=== PATIENT | male | born 1985 | race Caucasian/White ===

== ENCOUNTER 2016-12-17 15:33 | Emergency (ER) | payer OTHER ==
[2016-12-17 15:45] VITALS: BP 134/81; PULSE 87; TEMP 98.1; BMI 25.8
[2016-12-17] MEDS ORDERED: traMADol HCL 50 MG TABLET PO ONE (17:47)
[2016-12-17] MEDS ORDERED: traMADol HCL 50 MG TABLET ONE (17:53)
--- NOTE | 2016-12-17 17:57 | PDOC ---
History of Present Illness - General History Source: Patient - History of Present Illness Occurred: reports: other Upper Extremity Pain Location: right: forearm, arm <Harpreet Ronquillo - Last Filed: 12/17/16 17:48> <Cuong Flores - Last Filed: 12/17/16 20:29> - General Chief Complaint: Pain, Acute Stated Complaint: CHEST PAIN, RT ARM NUMBNESS Time Seen by Provider: 12/17/16 17:36 Past History - Past Medical History Anemia: No Asthma: No Cardiac Disorders: No CVA: No COPD: No Diabetes: No GI Disorders: No Disorders: No HTN: No Hypercholesterolemia: No Kidney Stones: No Suicide Attempt (Hx): No (DENIES) Seizures: No Thyroid Disease: No - Surgical History Abdominal Surgery: No Appendectomy: No Cardiac Surgery: No Cholecystectomy: No Lung Surgery: No Neurologic Surgery: No Orthopedic Surgery: No - Reproductive History Testicular Surgery: No - Psycho/Social/Smoking Cessation Hx Anxiety: No Suicidal Ideation: No Smoking History: Current every day smoker Have you smoked in the past 12 months: Yes Number of Cigarettes Smoked Daily: 20 Information on smoking cessation initiated: No 'Breaking Loose' booklet given: 07/09/16 Hx Alcohol Use: No (DENIES) Drug/Substance Use Hx: Yes (HEROIN/MARIJUANA) Substance Use Type: Heroin, Marijuana Hx Substance Use Treatment: Yes <Harpreet Ronquillo Last Filed: 12/17/16 17:48> <Cuong Flores - Last Filed: 12/17/16 20:29> - Past Medical History Allergies/Adverse Reactions: Allergies Allergy/AdvReac Type Severity Reaction Status Date / Time No Known Allergies Allergy Verified 12/17/16 15:42 Home Medications: Ambulatory Orders NK [No Known Home Medication] 07/09/16 Buprenorphine HCl/Naloxone HCl [Suboxone 8 mg-2 mg Sl Tablets] 1 each SL DAILY 12/17/16 Tramadol HCl 50 mg PO Q6H #5 tablet MDD 200 mg 12/17/16 Review of Systems - Review of Systems Constitutional: No: Chills, Fever Respiratory: No: Shortness of Breath Cardiac (ROS): No: Chest Pain Musculoskeletal: No: Neck Pain Neurological: No: Numbness, Tingling, Weakness <Harpreet Ronquillo Last Filed: 12/17/16 17:48> *Physical Exam - Vital Signs Last Vital Signs Temp Pulse Resp BP Pulse Ox 98.1 F 87 18 134/81 96 12/17/16 15:42 12/17/16 15:42 12/17/16 15:42 12/17/16 15:42 12/17/16 15:42 - Physical Exam General Appearance: Yes: Appropriately Dressed. No: Apparent Distress HEENT: positive: Normal Voice Neck: positive: Supple Respiratory/Chest: positive: Lungs Clear, Normal Breath Sounds. negative: Respiratory Distress Cardiovascular: positive: Regular Rate, S1, S2 Extremity: positive: Normal Capillary Refill, Normal Inspection, Normal Range of Motion. negative: Tender, Coldness, Cyanosis, Delayed Capillary Refill, Swelling, Erythema Integumentary: positive: Dry, Warm Neurologic: positive: Fully Oriented, Alert, Normal Mood/Affect. negative: Sensory Deficit <Harpreet Ronquillo - Last Filed: 12/17/16 17:48> - Vital Signs Last Vital Signs Temp Pulse Resp BP Pulse Ox 98.1 F 87 18 134/81 96 12/17/16 15:42 12/17/16 15:42 12/17/16 15:42 12/17/16 15:42 12/17/16 15:42 <Cuong Flores - Last Filed: 12/17/16 20:29> ED Treatment Course - Medications Given in the ED: ED Medications Discontinued Medications Generic Name Dose Route Start Last Admin Trade Name Freq PRN Reason Stop Dose Admin Tramadol HCl 50 mg 12/17/16 17:47 12/17/16 17:56 Ultram - PO 12/17/16 17:48 50 mg ONCE ONE Administration <Cuong Flores - Last Filed: 12/17/16 20:29> Medical Decision Making - Medical Decision Making 12/17/16 17:48 31 yo male, denies any past medical history, here with right upper extremity pain. Patient reports intermittent pain diffusely to right upper extremity 2 weeks that became constant yesterday and now complaining of numbness to right third and fourth digits. No neck pain or upper extremity weakness. No trauma or other inciting agents. No history of similar episode. States he has an upcoming appointment with neurology, but came to ED today because pain was unbearable. Has been taking motrin and tylenol w/ no relief. No chest pain as documented at triage. Patient well merry and in NAD w/ unremarkable exam. Dc w/ pain control and encourage neuro f/u 12/17/16 18:01 <Harpreet Ronquillo - Last Filed: 12/17/16 17:48> - Medical Decision Making 12/17/16 20:29 The patient was seen and evaluated in conjunction with DARRELL Ramon under my direct supervision, ancillary studies were reviewed. I agree with the plan as outlined by DARRELL Ronquillo . <Cuong Flores - Last Filed: 12/17/16 20:29> *DC/Admit/Observation/Transfer <Harpreet Ronquillo - Last Filed: 12/17/16 17:48> <Cuong Flores - Last Filed: 12/17/16 20:29> Diagnosis at time of Disposition: Arm pain Qualifiers: Laterality: right Qualified Code(s): M79.601 - Pain in right arm - Discharge Dispostion Disposition: HOME Condition at time of disposition: Good - Prescriptions Prescriptions: Tramadol HCl 50 mg PO Q6H #5 tablet MDD 200 mg - Referrals Referrals: Reina Garza MD [Primary Care Provider] - - Patient Instructions Printed Discharge Instructions: DI for Arm Pain Additional Instructions: Take meds as directed and follow up with your neurologist
== END 2016-12-17 18:24 | disposition home or self-care (01) ==
LOC: JER 15:33
DX: M79.601 Pain in right arm (principal); F17.210 Nicotine dependence, cigarettes, uncomplicated
CPT/HCPCS: 99283-25

== ENCOUNTER 2017-09-27 19:39 | Inpatient (IN) | payer OTHER ==
[2017-09-27 22:08] VITALS: BMI 22.8
--- NOTE | 2017-09-27 23:05 | HP ---
COWS - Scale Resting Pulse: 0= [place] 80 or Below Sweatin= Chills/Flushing Restless Observation: 1= Difficult to Sit Still Pupil Size: 1= Pupils >than Normal Bone or Joint Aches: 2= Severe Diffuse Aches Runny Nose/ Eye Tearin= Nasal Congestion GI Upset > 30mins: 1= Stomach Cramp Tremor Observation: 1= Tremor [facility], Not Seen Yawning Observation: 2= >3x During Session Anxiety or Irritability: 2=Irritable/Anxious Goose Flesh Skin: 3=Piloerection COWS Score: 15 Admission ROS S - HPI Chief Complaint: WITHDRAWAL SYMPTOMS Allergies/Adverse Reactions: Allergies Allergy/AdvReac Type Severity Reaction Status Date / Time No Known Allergies Allergy Verified 12/17/16 15:42 History of Present Illness: 32 Y.O. MAN WITH A HISTORY OF HEROIN DEPENDENCE IS HERE SEEKING DETOX. HE WAS LAST HERE FOR DETOX 06/2016 AND REHAB IN 08/2016 AT [facility]. SUPER[employer]OR [employer] VERIFIED AND HE LAST PRESCRIBED A 14 DAY SUPPLY OF SUBOXONE ON 09/18/17 BUT REPORTS HE CONTINUES TO USE HEROIN AND IS INCONSISTENT WITH THE MEDICATION. Exam Limitations: No Limitations - Ebola screening Have you been sick,other than usual withdrawal symptoms: No - Review of Systems Constitutional: Chills, Night Sweats, Changes in sleep EENT: reports: Tearing, Nose Congestion, Dental Problems (ON 7 DAY COURSE OF AMOXICILLIN) Respiratory: reports: Cough, Shortness of Breath Cardiac: reports: No Symptoms Reported GI: reports: Nausea, Abdominal cramping : reports: No Symptoms Reported Musculoskeletal: reports: Back Pain Integumentary: reports: No Symptoms Reported Neuro: reports: No Symptoms reported Endocrine: reports: No Symptoms Reported Hematology: reports: No Symptoms Reported Psychiatric: reports: Judgement Intact, Mood/Affect Appropiate, Orientated x3, Depressed Other Systems: Reviewed and Negative Patient History - Patient Medical History Hx Anemia: No Hx Asthma: No Hx Chronic Obstructive Pulmonary Disease (COPD): No Hx Cancer: No Hx Cardiac Disorders: No Hx Congestive Heart Failure: No Hx Hypertension: No Hx Hypercholesterolemia: No Hx Pacemaker: No HX Cerebrovascular Accident: No Hx Seizures: No Hx Dementia: No Hx Diabetes: No Hx Gastrointestinal Disorders: No Hx Liver Disease: No Hx Genitourinary Disorders: No Hx Sexually Transmitted Disorders: No Hx Renal Disease (ESRD): No Hx Thyroid Disease: No Hx Human Immunodeficiency Virus (HIV): No (NEGATIVE HX) Hx Hepatitis C: No Hx Depression: No Hx Suicide Attempt: No (DENIES) Hx Bipolar Disorder: No Hx Schizophrenia: No - Patient Surgical History Past Surgical History: No Hx Neurologic Surgery: No Hx Cataract Extraction: No Hx Cardiac Surgery: No Hx Lung Surgery: No Hx Breast Surgery: No Hx Breast Biopsy: No Hx Abdominal Surgery: No Hx Appendectomy: No Hx Cholecystectomy: No Hx Genitourinary Surgery: No Hx Orthopedic Surgery: No Anesthesia Reaction: No - PPD History Previous Implant?: Yes Documented Results: Positive w/o proof Implanted On Prior R Admission?: Yes Date: 07/11/16 Results: 0 PPD to be Administered?: Yes - Reproductive History Patient is a Female of Child Bearing Age (11 -55 yrs old): No - Smoking Cessation Smoking history: Current every day smoker Have you smoked in the past 12 months: Yes Aproximately how many cigarettes per day: 20 Hx Chewing Tobacco Use: No Initiated information on smoking cessation: Yes 'Breaking Loose' booklet given: 09/27/17 - Substance & Tx. History Hx Alcohol Use: No Hx Substance Use: Yes Substance Use Type: Heroin Hx Substance Use Treatment: Yes (DETOX: 06/2016) - Substances Abused Heroin Route: Inhalation Frequency: Daily Amount used: 20 BAGS Age of first use: 29 Date of Last Use: 09/27/17 Family Disease History - Family Disease History Family Disease History: Diabetes: Grandparent () Admission Physical Exam BHS - Vital Signs Vital Signs: Vital Signs - 24 hr 09/27/17 22:07 Temperature 97.4 F L Pulse Rate 72 Respiratory 18 Rate Blood Pressure 112/66 - Physical General Appearance: Yes: Irritable, Anxious HEENTM: Yes: Hearing grossly Normal, Normocephalic, Normal Voice Respiratory: Yes: Chest Non-Tender, Lungs Clear, Normal Breath Sounds, No Respiratory Distress, No Accessory Muscle Use Neck: Yes: No masses,lesions,Nodules, Trachea in good position Breast: Yes: Breast Exam Deferred Cardiology: Yes: Regular Rhythm, Regular Rate Abdominal: Yes: Normal Bowel Sounds, Non Tender, Flat Genitourinary: Yes: Other (NO COMPLAINTS REPORTED) Back: Yes: Normal Inspection Musculoskeletal: Yes: full range of Motion, Gait Steady, Pelvis Stable Extremities: Yes: Normal Capillary Refill, Normal Inspection, Normal Range of Motion, Non-Tender Neurological: Yes: Fully Oriented, Alert, Motor Strength 5/5, Normal Mood/Affect , Normal Response Integumentary: Yes: Normal Color, Dry, Warm Lymphatic: Yes: Within Normal Limits - Diagnostic (1) Nicotine dependence Current Visit: Yes Status: Chronic (2) Diverticulosis Current Visit: Yes Status: Chronic (3) Opioid dependence with withdrawal Current Visit: Yes Status: Chronic Cleared for Admission [facility] - Detox or Rehab [facility] Level of Care: Medically Managed Detox Regimen/Protocol: Methadone [facility] Breath Alcohol Content Breath Alcohol Content: 0 Urine Drug Screen - Results Drug Screen Negative: No Urine Drug Screen Results: THC-Marijuana, JHONY-Cocaine, OPI-Opiates, OXY- Oxycodone
[2017-09-27] MEDS ORDERED: guaiFENesin/D-METHORPHAN HB 10 ML UNIT-DOSE CUPS PO PRN (23:11)
[2017-09-27] MEDS ORDERED: MAGNESIUM HYDROX 2400MG/30ML ORAL SUSPENSION 30 ML CUP PO PRN (23:11)
[2017-09-27] MEDS ORDERED: MAGNESIUM CITRATE 300 ML BOTTLE PO PRN (23:11)
[2017-09-27] MEDS ORDERED: P-EPHED 60MG/TRIPROLIDI 2.5MG TABLET PO PRN (23:11)
[2017-09-27] MEDS ORDERED: MAG HYDROX/AL HYDROX/SIMETH 30 ML UNIT-DOSE CUP PO PRN (23:11)
[2017-09-27] MEDS ORDERED: LOPERAMIDE HCL 2 MG CAPSULE PO PRN (23:11)
[2017-09-27] MEDS ORDERED: hydrOXYzine PAMOATE 50 MG CAPSULE (FP) PO PRN (23:11)
[2017-09-27] MEDS ORDERED: ACETAMINOPHEN 325 MG TABLET (FP) PO PRN (23:11)
[2017-09-27] MEDS ORDERED: IBUPROFEN 400 MG TABLET (FP) PO PRN (23:11)
[2017-09-27] MEDS ORDERED: MENTHOL/PHENOL 1 EACH UD MM PRN (23:11)
[2017-09-27] MEDS ORDERED: NICOTINE POLACRILEX 2 MG GUM BC PRN (23:11)
[2017-09-28] MEDS ORDERED: METHADONE HCL 10 MG TABLET (FOR DETOX USE ONLY) PO ONE ×3 (00:06→23:00)
[2017-09-28] MEDS: diazePAM 5 MG TABLET PO PRN ×5 (01:23→18:44)
[2017-09-28] MEDS: AMOXICILLIN 500 MG CAPSULE (FP) PO SCH ×3 (06:10→22:06)
[2017-09-28 10:09] LABS: HEMATOCRIT 41.6 % (35.4-49); HEMOGLOBIN 13.8 GM/dL (11.7-16.9); MCH 28.9 pg (25.7-33.7); MCHC 33.3 g/dl (32.0-35.9); MEAN CELL VOLUME 86.7 fl (80-96); MEAN PLT VOLUME 8.3 fl (7.5-11.1); PLATELET COUNT 183 K/MM3 (134-434); RBC 4.79 M/mm3 (4.00-5.60); RDW 14.3 % (11.9-15.9); WHITE BLOOD COUNT 10.9 K/mm3 (4.0-10.0)
[2017-09-28 10:15] LABS: ANION GAP 8 (8-16); BLOOD UREA NITROGEN 15 mg/dL (7-18); CALCIUM 9.1 mg/dL (8.5-10.1); CHLORIDE 101 mmol/L (98-107); CO2 29 mmol/L (21-32); CREATININE 0.6 mg/dL (0.7-1.3); GLUCOSE,RANDOM 100 mg/dL (74-106); POTASSIUM 3.2 mmol/L (3.5-5.1); SGOT/AST 9 U/L (15-37); SGPT/ALT 14 U/L (12-78); SODIUM 138 mmol/L (136-145)
[2017-09-28 10:18] LABS: ALK PHOS 48 U/L (45-117); BILIRUBIN,TOTAL 0.7 mg/dL (0.2-1.0); TOT PROT 6.7 g/dl (6.4-8.2)
[2017-09-28] MEDS: NICOTINE 21 MG/24 HOURS TOPICAL PATCH TD SCH (10:31)
[2017-09-28] MEDS: PRENATAL VITAMINS W/ FOLIC ACID TABLET (FP) PO SCH (10:32)
--- NOTE | 2017-09-28 11:25 | EKG ---
Test Reason : Blood Pressure : / mmHG Vent. Rate : 066 BPM Atrial Rate : 066 BPM P-R Int : 180 ms QRS Dur : 096 ms QT Int : 384 ms P-R-T Axes : 078 069 075 degrees QTc Int : 402 ms NORMAL SINUS RHYTHM NORMAL ECG WHEN COMPARED WITH ECG OF 10-APR-2016 13:59, NO SIGNIFICANT CHANGE WAS FOUND Confirmed by DEB JURADO MD ([id number]) on 09/28/2017 11:25:24 AM Referred By: Confirmed By:DEB JURADO MD
--- NOTE | 2017-09-28 11:57 | CONSULT ---
[facility] Psychiatric Consult - Data Date of interview: 09/28/17 Admission source: [facility] Identifying data: Readmission to [facility] for this 32 y/o male seeking detx treatment on for heroin,cannabis and cocaine dependence.Patient is single without children,domiciled,unemployed and supported by relatives. Substance Abuse History: Discussed with patient in this interview.Mr Sellers admits to the continous use of marihuana (since age 18),heroin and occasional use of cocaine.Refer to current [facility] report for details : Smoking history: Current every day smoker. Have you smoked in the past 12 months: Yes. Aproximately how many cigarettes per day: 20. Hx Chewing Tobacco Use: No. Initiated information on smoking cessation: Yes. 'Breaking Loose' booklet given : 09/27/17. - Substance & Tx. History. Hx Alcohol Use: No. Hx Substance Use: Yes. Substance Use Type: Heroin. Hx Substance Use Treatment: Yes (DETOX: 2015). - Substances Abused. Heroin. Route: Inhalation. Frequency: Daily. Amount used: 20 BAGS. Age of first use: 29. Date of Last Use: 09/27/17 Medical History: Patient endorses good general health. Psychiatric History: Patient denies. Physical/Sexual Abuse/Trauma History: No reported history of abuse. Additional Comment: Urine Drug Screen Results: THC-Marijuana, JHONY-Cocaine, OPI- Opiates, OXY-Oxycodone.Noted. Mental Status Exam - Mental Status Exam Alert and Oriented to: Time, Place, Person Cognitive Function: Good Patient Appearance: Well Groomed (covered with tattoos : arms,forearms,chest, neck,legs) Mood: Hopeful, Euthymic Affect: Appropriate, Normal Range Patient Behavior: Fatigued, Appropriate, Cooperative Speech Pattern: Clear, Appropriate Voice Loudness: Normal Thought Process: Intact, Goal Oriented Thought Disorder: Not Present Hallucinations: Denies Suicidal Ideation: Denies Homicidal Ideation: Denies Insight/Judgement: Poor Sleep: Poorly, Difficulty falling asleep Appetite: Good Muscle strength/Tone: Normal Gait/Station: Normal Psychiatric Findings - Problem List ([employer] 1, 2,3) (1) Opioid dependence with withdrawal Current Visit: Yes Status: Acute (2) Cannabis dependence, uncomplicated Current Visit: Yes Status: Acute (3) Cocaine abuse Current Visit: Yes Status: Acute (4) Nicotine dependence Current Visit: Yes Status: Acute (5) Insomnia Current Visit: Yes Status: Acute - Initial Treatment Plan Initial Treatment Plan: Psychoeducation.Support.Detoxification in progress.Ambien 10 mg po hs prn.patient is informed of risk of parasomnias.He agrees with this careplan.Observation.
--- NOTE | 2017-09-28 14:33 | PN ---
BHS COWS - Scale Resting Pulse: 0= [place] 80 or Below Sweatin= Chills/Flushing Restless Observation: 1= Difficult to Sit Still Pupil Size: 0= Normal to Room Light Bone or Joint Aches: 2= Severe Diffuse Aches Runny Nose/ Eye Tearin= None GI Upset > 30mins: 0= None Tremor Observation of Outstretched Hands: 2= Slight Tremor Visible Yawning Observation: 1= 1-2x During Session Anxiety or Irritability: 2=Irritable/Anxious Goose Flesh Skin: 3=Piloerection COWS Score: 12 BHS Progress Note (SOAP) Subjective: Sweating, Hot / Cold Sensations, Fatigue, Tremors, Anxious. Objective: PT. A & O X 3, OBSERVED AMBULATING ON UNIT. NO ACUTE DISTRESS. 09/28/17 14:30 Vital Signs Temperature 97.4 F L 09/28/17 13:51 Pulse Rate 78 09/28/17 13:51 Respiratory Rate 18 09/28/17 13:51 Blood Pressure 124/67 09/28/17 13:51 O2 Sat by Pulse Oximetry (%) Laboratory Tests 09/28/17 09/28/17 09/28/17 08:00 08:00 08:00 WBC 10.9 H D RBC 4.79 Hgb 13.8 Hct 41.6 MCV 86.7 MCH 28.9 MCHC 33.3 RDW 14.3 Plt Count 183 MPV 8.3 Sodium 138 Potassium 3.2 L Chloride 101 Carbon Dioxide 29 Anion Gap 8 BUN 15 D Creatinine 0.6 L Creat Clearance w eGFR > 60 Random Glucose 100 Calcium 9.1 Total Bilirubin 0.7 D AST 9 L D ALT 14 D Alkaline Phosphatase 48 Total Protein 6.7 Albumin 4.0 RPR Titer Nonreactive HIV 1&2 Antibody Screen HIV P24 Antigen 09/28/17 08:00 WBC RBC Hgb Hct MCV MCH MCHC RDW Plt Count MPV Sodium Potassium Chloride Carbon Dioxide Anion Gap BUN Creatinine Creat Clearance w eGFR Random Glucose Calcium Total Bilirubin AST ALT Alkaline Phosphatase Total Protein Albumin RPR Titer HIV 1&2 Antibody Screen Negative HIV P24 Antigen Negative LABS NOTED. UA RESULTS PENDING. 09/28/17 14:32 Assessment: 09/28/17 14:31 WITHDRAWAL SYMPTOMS. HYPOKALEMIA. 09/28/17 14:33 Plan: CONTINUE DETOX. K-DUR 20 MEQ PO X 1 NOW, THEN 20 MEQ PO BID AFTER. INCREASE DAILY PO FLUID INTAKE.
[2017-09-28] MEDS ORDERED: POTASSIUM CHLORIDE TABS 20 MEQ TABLET.ER (FP) PO ONE (14:45)
[2017-09-28] MEDS: POTASSIUM CHLORIDE TABS 20 MEQ TABLET.ER (FP) PO SCH (17:04)
[2017-09-28 17:54] LABS: URINE APPEARANCE CLOUDY; URINE BILIRUBIN NEGATIVE (NEGATIVE); URINE BLOOD NEGATIVE (NEGATIVE); URINE COLOR DKYELLOW; URINE GLUCOSE (UA) NEGATIVE (NEGATIVE); URINE KETONE NEGATIVE (NEGATIVE); URINE LEUK ESTERASE NEGATIVE (NEGATIVE); URINE NITRITE NEGATIVE (NEGATIVE); URINE PROTEIN NEGATIVE (NEGATIVE)
[2017-09-28] MEDS: THIAMINE HCL 100 MG TABLET (FP) PO SCH (22:06)
[2017-09-28] MEDS: ZOLPIDEM TARTRATE 10 MG TABLET (PARK CARE ONLY) PO PRN (22:06)
[2017-09-29] MEDS: AMOXICILLIN 500 MG CAPSULE (FP) PO SCH ×3 (05:52→22:38)
[2017-09-29] MEDS: diazePAM 5 MG TABLET PO PRN ×3 (05:52→17:19)
[2017-09-29] MEDS: METHADONE HCL 10 MG TABLET (FOR DETOX USE ONLY) PO ONE ×2 (10:30→11:17)
[2017-09-29] MEDS: PRENATAL VITAMINS W/ FOLIC ACID TABLET (FP) PO SCH ×2 (10:30→11:17)
[2017-09-29] MEDS: POTASSIUM CHLORIDE TABS 20 MEQ TABLET.ER (FP) PO SCH ×3 (10:30→17:18)
[2017-09-29] MEDS: NICOTINE 21 MG/24 HOURS TOPICAL PATCH TD SCH (10:31)
--- NOTE | 2017-09-29 14:01 | PN ---
BHS COWS - Scale Resting Pulse: 0= [place] 80 or Below Sweatin= Chills/Flushing Restless Observation: 3= Extraneous Movement Pupil Size: 0= Normal to Room Light Bone or Joint Aches: 2= Severe Diffuse Aches Runny Nose/ Eye Tearin= Runny Nose/Eyes GI Upset > 30mins: 1= Stomach Cramp Tremor Observation of Outstretched Hands: 2= Slight Tremor Visible Yawning Observation: 0= None Anxiety or Irritability: 2=Irritable/Anxious Goose Flesh Skin: 0=Smooth Skin COWS Score: 13 BHS Progress Note (SOAP) Subjective: Interrupted sleep, sweating, chills, agitated, angry. Patient stated that he might leave AMA today because he doesn't feel comfortable here and that he has been staying in his car for 2 days and prefers to leave and get high on dope and sleep in his car even though it's cold outside. Pouncer Machine encouraged patient to stay and complete detox and to consider rehab. Pouncer Machine educated patient on importance of managing withdrawal symptoms and abstinence from opioid in preventing . Objective: 09/29/17 14:00 Last Vital Signs Temp Pulse Resp BP Pulse Ox 97.3 F L 80 18 128/65 09/29/17 13:19 09/29/17 13:19 09/29/17 13:19 09/29/17 13:19 Laboratory Tests 09/28/17 09/28/17 09/28/17 08:00 08:00 08:00 WBC 10.9 H D RBC 4.79 Hgb 13.8 Hct 41.6 MCV 86.7 MCH 28.9 MCHC 33.3 RDW 14.3 Plt Count 183 MPV 8.3 Sodium 138 Potassium 3.2 L Chloride 101 Carbon Dioxide 29 Anion Gap 8 BUN 15 D Creatinine 0.6 L Creat Clearance w eGFR > 60 Random Glucose 100 Calcium 9.1 Total Bilirubin 0.7 D AST 9 L D ALT 14 D Alkaline Phosphatase 48 Total Protein 6.7 Albumin 4.0 Urine Color Urine Appearance Urine pH Ur Specific [place] Urine Protein Urine Glucose (UA) Urine Ketones Urine Blood Urine Nitrite Urine Bilirubin Urine Urobilinogen Ur Leukocyte Esterase RPR Titer Nonreactive HIV 1&2 Antibody Screen HIV P24 Antigen 09/28/17 09/28/17 08:00 14:39 WBC RBC Hgb Hct MCV MCH MCHC RDW Plt Count MPV Sodium Potassium Chloride Carbon Dioxide Anion Gap BUN Creatinine Creat Clearance w eGFR Random Glucose Calcium Total Bilirubin AST ALT Alkaline Phosphatase Total Protein Albumin Urine Color Dkyellow Urine Appearance Cloudy Urine pH 8.0 D Ur Specific [place] 1.019 Urine Protein Negative Urine Glucose (UA) Negative Urine Ketones Negative Urine Blood Negative Urine Nitrite Negative Urine Bilirubin Negative Urine Urobilinogen 2.0 Ur Leukocyte Esterase Negative RPR Titer HIV 1&2 Antibody Screen Negative HIV P24 Antigen Negative Labs noted: K 3.2 Assessment: 09/29/17 14:01 Withdrawal symptoms Noted with hypokalemia Plan: Continue detox Encouraged to drink lots of water for hydration Hypokalemia: continue K Dur supplement
[2017-09-29] MEDS: THIAMINE HCL 100 MG TABLET (FP) PO SCH (22:39)
[2017-09-29] MEDS: ZOLPIDEM TARTRATE 10 MG TABLET (PARK CARE ONLY) PO PRN (22:39)
[2017-09-30] MEDS: diazePAM 5 MG TABLET PO PRN (05:20)
[2017-09-30] MEDS: AMOXICILLIN 500 MG CAPSULE (FP) PO SCH (05:20)
[2017-09-30 09:26] VITALS: BP 113/74; PULSE 81; TEMP 98.1
[2017-09-30] MEDS ORDERED: METHADONE HCL 5 MG TABLET (FOR DETOX USE ONLY) PO ONE (10:00)
--- NOTE | 2017-09-30 10:17 | PN ---
[facility] Progress Note Note: Psychiatric nurse practitioner. Pt irritable this morning. Resistant to treatment and threatening staff to allow him to leave. Upon evaluation of staff, patient stated, " I want to go home and kill myself. I already know how i am going to do it." Pt. also stated, " I will sit in my car and just freeze to ." Patient then evaluated by psychiatric nurse practitioner. Pt. stated to underwriter solicitation director, " I'm having thoughts to kill myself. " Patient then stated, "let me go home. If i am not allowed to go home i will break the locker, get my stuff and leave." At this time patient is currently a danger to himself and others. Patient placed on 1:1 observation. Pt. transferred to [facility].
--- NOTE | 2017-09-30 10:38 | PN ---
[facility] Progress Note Note: PT CAME TO THIS X [employer]AY EXAMINER [employer] AND STATED HE WANTS TO SIGN OUT BECAUSE HE IS TIRED OF STAYING HERE AND WAKING UP EVERY HOUR. ASKED PT IF THERE IS ANYTHING WE CAN DO DIFFERENTLY TO KEEP HIM COMFORTABLE BUT HE DECLINED. THIS X RAY EXAMINER [employer] WENT FURTHER TO ASK PATIENT IF HE HAS A PCP UPON DISCHARGE AND WHO/AND WHERE LOCATED. PT STATES HE HAS ONE AND HAS NOT SEEN PCP FOR SOMETIME AND NO PLAN TO SEE ONE SOON. X RAY EXAMINER [employer] ASKED WHY? PT STATED "BECAUSE I PLAN ON KILLING MYSELF WHEN I LEAVE HERE. I HAVE NO WHERE TO GO. I HAVE NO FAMILY MEMBERS. THEY PUT ME OUT. I LIVE IN MY CAR FOR PAST MONTH AND I PARKED IT DOWN THE STREET". ASKED IF HE HAD A PLAN. HE STATED "WHAT DO YOU THINK? I'M JUST GONNA STAY IN MY CAR AND FREEZE TO IN THE BELOW ZERO DEGREE WEATHER". PT APPEARS VERY AGITATED AND WAS ALSO SPOKEN TO BY THE COUNSELOR CARLITO STRATTON. THE NURSING ACTING INSTRUCTOR,SHIVANI WAS IN ATTENDANCE. PT WAS SEEN AND EVALUATED BY RUTH BARBOUR AND PT WAS PUT ON 1:1 WHILE AWAITING FOR EMERGENCY AMBULANCE AFTER 911 ACTIVATED. Vital Signs Temperature 98.1 F 09/30/17 09:24 Pulse Rate 81 09/30/17 09:24 Respiratory Rate 18 09/30/17 09:24 Blood Pressure 113/74 09/30/17 09:24 O2 Sat by Pulse Oximetry (%) 911 RESPONDED TIMELY AND PT TAKEN OUT OF THE UNIT TO [facility] ER FOR FURTHER EVALUATION AND TREATMENT. ADDITIONAL NOTE: PT REPORTS HAS HIS OWN RX AMOXICILLIN AND INSTRUCTED TO FINISH COURSE OF TREATMENT .
[2017-09-30] MEDS: NICOTINE 21 MG/24 HOURS TOPICAL PATCH TD SCH (10:45)
[2017-09-30] MEDS: POTASSIUM CHLORIDE TABS 20 MEQ TABLET.ER (FP) PO SCH (10:45)
[2017-09-30] MEDS: PRENATAL VITAMINS W/ FOLIC ACID TABLET (FP) PO SCH (10:45)
--- NOTE | 2017-09-30 15:57 | DS ---
[facility] Detox Discharge Summary Admission Date: 09/28/17 Discharge Date: 09/30/17 (S/I) - History Present History: Cannabis Dependence, Opioid Dependence Additional Comments: PT WAS TRANSFERRED TO [facility] FOR EVALUATION AND TREATMENT IF NEEDED DUE TO S/I. SEE PROVIDER'S NOTE. Pertinent Past History: HX DIVERTICULOSIS HX DUODENITIS - Physical Exam Results Vital Signs: Vital Signs Temperature 98.1 F 09/30/17 09:24 Pulse Rate 81 09/30/17 09:24 Respiratory Rate 18 09/30/17 09:24 Blood Pressure 113/74 09/30/17 09:24 O2 Sat by Pulse Oximetry (%) Pertinent Admission Physical Exam Findings: WITHDRAWAL SX Laboratory Last Values WBC 10.9 K/mm3 (4.0-10.0) H D 09/28/17 08:00 RBC 4.79 M/mm3 (4.00-5.60) 09/28/17 08:00 Hgb 13.8 GM/dL (11.7-16.9) 09/28/17 08:00 Hct 41.6 % (35.4-49) 09/28/17 08:00 MCV 86.7 fl (80-96) 09/28/17 08:00 MCH 28.9 pg (25.7-33.7) 09/28/17 08:00 MCHC 33.3 g/dl (32.0-35.9) 09/28/17 08:00 RDW 14.3 % (11.9-15.9) 09/28/17 08:00 Plt Count 183 K/MM3 (134-434) 09/28/17 08:00 MPV 8.3 fl (7.5-11.1) 09/28/17 08:00 Sodium 138 mmol/L (136-145) 09/28/17 08:00 Potassium 3.2 mmol/L (3.5-5.1) L 09/28/17 08:00 Chloride 101 mmol/L (98-107) 09/28/17 08:00 Carbon Dioxide 29 mmol/L (21-32) 09/28/17 08:00 Anion Gap 8 (8-16) 09/28/17 08:00 BUN 15 mg/dL (7-18) D 09/28/17 08:00 Creatinine 0.6 mg/dL (0.7-1.3) L 09/28/17 08:00 Creat Clearance w eGFR > 60 (>60) 09/28/17 08:00 Random Glucose 100 mg/dL (74-106) 09/28/17 08:00 Calcium 9.1 mg/dL (8.5-10.1) 09/28/17 08:00 Total Bilirubin 0.7 mg/dL (0.2-1.0) D 09/28/17 08:00 AST 9 U/L (15-37) L D 09/28/17 08:00 ALT 14 U/L (12-78) D 09/28/17 08:00 Alkaline Phosphatase 48 U/L (45-117) 09/28/17 08:00 Total Protein 6.7 g/dl (6.4-8.2) 09/28/17 08:00 Albumin 4.0 g/dl (3.4-5.0) 09/28/17 08:00 Urine Color Dkyellow 09/28/17 14:39 Urine Appearance Cloudy 09/28/17 14:39 Urine pH 8.0 (5.0-8.0) D 09/28/17 14:39 Ur Specific [place] 1.019 (1.001-1.035) 09/28/17 14:39 Urine Protein Negative (NEGATIVE) 09/28/17 14:39 Urine Glucose (UA) Negative (NEGATIVE) 09/28/17 14:39 Urine Ketones Negative (NEGATIVE) 09/28/17 14:39 Urine Blood Negative (NEGATIVE) 09/28/17 14:39 Urine Nitrite Negative (NEGATIVE) 09/28/17 14:39 Urine Bilirubin Negative (NEGATIVE) 09/28/17 14:39 Urine Urobilinogen 2.0 mg/dL (0.2-1.0) 09/28/17 14:39 Ur Leukocyte Esterase Negative (NEGATIVE) 09/28/17 14:39 RPR Titer Nonreactive (NONREACTIVE) 09/28/17 08:00 HIV 1&2 Antibody Screen Negative 09/28/17 08:00 HIV P24 Antigen Negative 09/28/17 08:00 KDUR SUPPLEMENTATION TREATMENT GIVEN. - Medication Discharge Medications: Ambulatory Orders Buprenorphine HCl/Naloxone HCl [Suboxone 8 mg-2 mg Sl Tablets] 1 each SL DAILY 12/17/16 Tramadol HCl 50 mg PO Q6H #5 tablet MDD 200 mg 12/17/16 Amoxicillin - [Amoxicillin 500mg Capsule -] 500 mg PO TID capsule 09/30/17 Amoxicillin - [Amoxicillin 500mg Capsule -] 500 mg PO TID MDD 09/27/17 09/30/17 - Diagnosis (1) Cannabis dependence, uncomplicated Status: Acute (2) Hypokalemia Status: Acute (3) Nicotine dependence Status: Acute Qualifiers: Nicotine product type: cigarettes Substance use status: in withdrawal Qualified Code(s): F17.213 - Nicotine dependence, cigarettes, with withdrawal (4) Opioid dependence with withdrawal Status: Acute - AMA Did Patient Leave Against Medical Advice: No (TRANSFERRED VIA 911 CALL TO [facility] ER)
[2017-10-01] MEDS ORDERED: METHADONE HCL 5 MG TABLET (FOR DETOX USE ONLY) PO ONE (10:00)
[2017-10-02] MEDS ORDERED: METHADONE HCL 10 MG TABLET (FOR DETOX USE ONLY) PO ONE (10:00)
[2017-10-03] MEDS ORDERED: METHADONE HCL 5 MG TABLET (FOR DETOX USE ONLY) PO ONE (06:00)
== END 2017-09-30 10:24 | disposition short-term general hospital (02) | DRG 773 ==
LOC: YASAS 19:39 → Y3N 09-28 00:12
PROVIDERS: ADMIT Internal Medicine; ATTEND Internal Medicine
PROC: HZ2ZZZZ Detoxification Services for Substance Abuse Treatment (ICD-10-PCS; principal; 2017-09-28)
DX: F11.23 Opioid dependence with withdrawal (principal); F12.20 Cannabis dependence, uncomplicated; F14.10 Cocaine abuse, uncomplicated; F17.210 Nicotine dependence, cigarettes, uncomplicated; E87.6 Hypokalemia; K57.90 Diverticulosis of intestine, part unspecified, without perforation or abscess without bleeding; G47.00 Insomnia, unspecified; R45.851 Suicidal ideations
CPT/HCPCS: 36415; 80053; 81003; 85027; 86593; 87389; 93005; 93010

== ENCOUNTER 2020-12-14 17:45 | Inpatient (IN) | payer OTHER ==
[2020-12-14 21:31] VITALS: BMI 22.1
[2020-12-14] MEDS ORDERED: METHADONE HCL 10 MG TABLET (FOR DETOX USE ONLY) PO ONE (22:09)
[2020-12-14] MEDS ORDERED: ACETAMINOPHEN 325 MG TABLET (FP) PO PRN ×2 (22:09)
[2020-12-14] MEDS ORDERED: BISMUTH SUBSALICYLATE 524 MG/30 ML UD PO PRN (22:09)
[2020-12-14] MEDS ORDERED: NICOTINE POLACRILEX 2 MG GUM BUC PRN (22:09)
[2020-12-14] MEDS ORDERED: MAGNESIUM CITRATE 300 ML BOTTLE PO PRN (22:09)
[2020-12-14] MEDS ORDERED: IBUPROFEN 400 MG TABLET (FP) PO PRN (22:09)
[2020-12-14] MEDS ORDERED: MAGNESIUM HYDROX 2400MG/30ML ORAL SUSPENSION 30 ML CUP PO PRN (22:09)
[2020-12-14] MEDS ORDERED: cloNIDine HCL 0.1 MG TABLET PO PRN (22:09)
[2020-12-14] MEDS ORDERED: MENTHOL/PHENOL 1 EACH UD MM PRN (22:09)
[2020-12-14] MEDS ORDERED: MAG HYDROX/AL HYDROX/SIMETH 30 ML UNIT-DOSE CUP PO PRN (22:09)
[2020-12-14] MEDS ORDERED: METHOCARBAMOL 500 MG TABLET PO PRN (22:09)
[2020-12-14] MEDS ORDERED: ONDANSETRON *ODT* 4 MG TABLET SL PRN (22:09)
[2020-12-15] MEDS ORDERED: METHADONE HCL 10 MG TABLET (FOR DETOX USE ONLY) ONE (09:33)
[2020-12-15] MEDS ORDERED: METHADONE HCL 5 MG TABLET (FOR DETOX USE ONLY) ONE (09:33)
[2020-12-15] MEDS ORDERED: METHADONE (DETOX) 20 MG, METHADONE (DETOX) 5 MG PO ONE (10:00)
[2020-12-15] MEDS: PRENATAL VITAMINS W/ FOLIC ACID TABLET (FP) PO SCH (10:03)
[2020-12-15] MEDS: NICOTINE 21 MG/24 HOURS TOPICAL PATCH TD SCH (10:03)
[2020-12-15 10:44] LABS: POTASSIUM 3.9 mmol/L (3.5-5.1)
[2020-12-15 10:50] LABS: BLOOD UREA NITROGEN 15.8 mg/dL (7-18); CALCIUM 9.2 mg/dL (8.5-10.1)
[2020-12-15 10:51] LABS: ALBUMIN 3.9 g/dl (3.4-5.0); HEMATOCRIT 39.2 % (35.4-49); HEMOGLOBIN 13.1 GM/dL (11.7-16.9); MCH 30.7 pg (25.7-33.7); MCHC 33.5 g/dl (32.0-35.9); MEAN CELL VOLUME 91.5 fl (80-96); MEAN PLT VOLUME 8.1 fl (7.5-11.1); PLATELET COUNT 198 K/MM3 (134-434); RBC 4.29 M/mm3 (4.00-5.60); RDW 14.4 % (11.9-15.9); WHITE BLOOD COUNT 8.8 K/mm3 (4.0-10.0)
[2020-12-15 10:53] LABS: CREATININE 0.6 mg/dL (0.55-1.3)
[2020-12-15 10:55] LABS: BILIRUBIN,TOTAL 0.6 mg/dL (0.2-1); TOT PROT 6.6 g/dl (6.4-8.2)
[2020-12-15] MEDS ORDERED: hydrOXYzine PAMOATE 25 MG CAPSULE (FP) PO PRN (12:29)
[2020-12-15] MEDS: THIAMINE HCL 100 MG TABLET (FP) PO SCH (21:19)
[2020-12-15] MEDS: MELATONIN 5 MG TABLETS PO SCH (21:19)
[2020-12-16] MEDS ORDERED: METHADONE HCL 10 MG TABLET (FOR DETOX USE ONLY) PO ONE (10:00)
[2020-12-16] MEDS: NICOTINE 21 MG/24 HOURS TOPICAL PATCH TD SCH ×2 (10:16→13:13)
[2020-12-16] MEDS: PRENATAL VITAMINS W/ FOLIC ACID TABLET (FP) PO SCH (10:16)
[2020-12-16] MEDS: THIAMINE HCL 100 MG TABLET (FP) PO SCH (22:16)
[2020-12-16] MEDS: MELATONIN 5 MG TABLETS PO SCH (22:16)
[2020-12-17] MEDS ORDERED: METHADONE HCL 10 MG TABLET (FOR DETOX USE ONLY) ONE (08:36)
[2020-12-17] MEDS ORDERED: METHADONE HCL 5 MG TABLET (FOR DETOX USE ONLY) ONE (08:36)
[2020-12-17 09:55] VITALS: BP 110/79; PULSE 77; TEMP 98
[2020-12-17] MEDS ORDERED: METHADONE (DETOX) 10 MG, METHADONE (DETOX) 5 MG PO ONE (10:00)
[2020-12-17] MEDS: NICOTINE 21 MG/24 HOURS TOPICAL PATCH TD SCH (11:23)
[2020-12-17] MEDS: PRENATAL VITAMINS W/ FOLIC ACID TABLET (FP) PO SCH (11:23)
[2020-12-18] MEDS ORDERED: METHADONE HCL 10 MG TABLET (FOR DETOX USE ONLY) PO ONE (10:00)
[2020-12-19] MEDS ORDERED: METHADONE HCL 5 MG TABLET (FOR DETOX USE ONLY) PO ONE (06:00)
== END 2020-12-17 13:00 | disposition left against medical advice (07) | DRG 770 ==
LOC: YASAS 17:45 → Y6N 22:13
PROVIDERS: ADMIT Allergy & Immunology; ATTEND Allergy & Immunology
PROC: HZ2ZZZZ Detoxification Services for Substance Abuse Treatment (ICD-10-PCS; principal; 2020-12-14)
DX: F11.23 Opioid dependence with withdrawal (principal); F12.20 Cannabis dependence, uncomplicated; F17.210 Nicotine dependence, cigarettes, uncomplicated; Z87.19 Personal history of other diseases of the digestive system
CPT/HCPCS: 36415; 80053; 85027; 86780; 93005; 93010; C9803; Q0162; U0003

== ENCOUNTER 2024-04-01 10:28 | Emergency (ER) | payer SELFPAY ==
[2024-04-01 10:36] VITALS: BP 130/88; PULSE 84; RESP 18; TEMP 98.6; BMI 22.6
[2024-04-01 11:50] LABS: BASO % 0.2 % (0-2.0); EOS % 0.2 % (0-4.5); HEMATOCRIT 42.8 % (35.4-49); HEMOGLOBIN 14.7 GM/dL (11.7-16.9); LYMPH % 10.6 % (8-40); MCH 29.9 pg (25.7-33.7); MCHC 34.3 g/dl (32.0-35.9); MEAN CELL VOLUME 87.3 fl (80-96); MEAN PLT VOLUME 7.2 fl (7.5-11.1); MONO % 7.8 % (3.8-10.2); NEUT % 81.2 % (42.8-82.8); PLATELET COUNT 280 10^3/uL (134-434); RBC 4.91 M/mm3 (4.00-5.60); RDW 14.7 % (11.9-15.9); WHITE BLOOD COUNT 12.2 K/mm3 (4.0-10.0)
[2024-04-01] MEDS: ACETAMINOPHEN 325 MG TABLET (FP) PO ONE (11:58)
[2024-04-01] MEDS ORDERED: ACETAMINOPHEN 325 MG TABLET (FP) ONE (12:02)
[2024-04-01 12:09] LABS: POTASSIUM 3.6 mmol/L (3.5-5.1)
[2024-04-01 12:11] LABS: ALBUMIN 4.4 g/dl (3.4-5.0); CALCIUM 9.4 mg/dL (8.5-10.1)
[2024-04-01 12:12] LABS: BLOOD UREA NITROGEN 13.2 mg/dL (7-18)
[2024-04-01 12:14] LABS: CREATININE 0.6 mg/dL (0.55-1.3)
[2024-04-01 12:16] LABS: BILIRUBIN,TOTAL 0.8 mg/dL (0.2-1); TOT PROT 7.6 g/dl (6.4-8.2)
== END 2024-04-01 14:08 | disposition left against medical advice (07) ==
LOC: JER 10:28
DX: M25.561 Pain in right knee (principal); M25.562 Pain in left knee; M54.9 Dorsalgia, unspecified; R07.9 Chest pain, unspecified; R11.2 Nausea with vomiting, unspecified; R19.7 Diarrhea, unspecified
CPT/HCPCS: 36415; 71046-TC-FY; 80053; 84484; 85025; 93005; 93010; 99285-25